=== PATIENT | female | born 1970 | race African-American/Black ===

== ENCOUNTER 2019-06-16 20:00 | Emergency (ER) | payer BC, SELFPAY ==
--- NOTE | ~2019-06-16 | XR_ITS ---
EXAMINATION: XR chest 2V 06/16/2019 20:40 INDICATION: Chest pain and palpitations PROCEDURE: 2 view chest COMPARISON: No prior studies for comparison. FINDINGS: The lungs are clear. The cardiomediastinal silhouette is within normal limits. There are no pleural effusions. There is no pneumothorax suspected. IMPRESSION: 1: NO ACUTE CARDIOPULMONARY DISEASE. Reviewed, dictated and finalized at location A. WORKER
[2019-06-16 20:05] VITALS: BP 141/85; PULSE 79; RESP 23; TEMP 36.7; O2SAT 97
--- NOTE | 2019-06-16 20:11 | ECG_ITS ---
Measurements Intervals [place] Rate: 75 P: 51 WI: 225 QRS: 64 QRSD: 76 T: 46 QT: 360 QTc: 404 Interpretive Statements SINUS RHYTHM WITH FIRST DEGREE AV BLOCK BASELINE WANDER- I, II, AVR, AVF, V2-V3 ABNORMAL ECG Electronically Signed On 06-17-2019 10:33:14 SENIOR QUALITY ASSURANCE ENGINEER by Shane Mart D.O.
--- NOTE | 2019-06-16 20:11 | ED.ARRPALP ---
HPI - Arrhythmia/Palpitations General Chief Complaint: Arrhythmia/Palpitations Stated Complaint: Not Feeling Well/Palpitations Time Seen by Provider: 06/16/19 20:08 Source: patient and RN notes reviewed Mode of arrival: ambulatory Limitations: no limitations History of Present Illness HPI narrative: Pt is a 48 y/o female who presents to the ED with c/o heart palpitations which began 2 days ago. She states she feels like her heart is racing. She states the palpitations last for approximately 5 minutes before alleviating. Pt reports she called her physician and got an appointment in 5 days, however, she felt like her symptoms worsened today which prompted her to come into the ED to be evaluated. She states she was driving home from work when her palpitations began again. She noticed her heart rate was increasing as she checked her Fit Bit. This episode of palpitations lasted longer than the episodes of 5 minutes she has had the past 2 days. She reports trying to take deep breaths without alleviation of her symptoms. Pt reports lightheadedness, but denies SOB or nausea. MD complaint: rapid heart beat, heart racing and palpitations Onset (ago): day(s) (2 days) Duration: intermittent Context: occurred during rest (most recent episode occurred when she was driving) Associated symptoms: other (lightheadedness) Related Data Allergies Allergy/AdvReac Type Severity Reaction Status Date / Time No Known Allergies Allergy Verified 06/16/19 20:09 Review of Systems Review of Systems: All systems reviewed & are unremarkable except as noted in HPI and below Cardiovascular: Cardiovascular: Reports rapid heart rate and Reports other (heart palpitations) Respiratory: Respiratory: Denies dyspnea Gastrointestinal: Gastrointestinal: Denies nausea Neurologic: Reports other (lightheadedness) [facility] Past Medical History Medical History (Updated 06/16/19 @ 23:32 by Paul Ford DO) No pertinent past medical history Surgical History Surgical History (Updated 06/16/19 @ 20:17 by Paola Chavez) No pertinent past surgical history Social History Social History (Updated 06/16/19 @ 20:17 by Paola Chavez) Smoking status: Smoker, status unknown Exam Narrative: Exam Narrative: APPEARANCE: No acute distress, nontoxic, resting in bed EYES: EOMI HEENT: Normocephalic, atraumatic, OMM RESPIRATORY: No respiratory distress Clear to auscultation bilaterally with no rhonchi wheezing or rales. CARDIOVASCULAR: Regular rate and rhythm without murmurs rubs or gallops. ABDOMINAL: Soft, nontender, nondistended, no rebound or guarding MUSCULOSKELETAl: Moves all extremities. No clubbing, cyanosis or edema. NEURO: Awake and alert. Following commands, speech normal, no focal deficits SKIN:: Warm, dry. No rashes lesions or abrasions PSYCHIATRIC: Normal affect/mood, Course Course Emergency Course: Patient meets PERC rule criteria and no further testing needs to be performed for pulmonary embolism. Patient remained on skid road worker throughout stay in ED no arrhythmias while in ED Discussed with patient results of workup and diagnosis. Discussed need for follow-up with primary care, proper use of medication, and reasons to return to the emergency department. Patient understands and agrees to current treatment plan discussed with patient Holter monitor as outpatient Vital Signs Vital signs: Vital Signs Temperature 98.1 F 06/16/19 20:05 Pulse Rate 79 06/16/19 20:05 Respiratory Rate 23 H 06/16/19 20:05 Blood Pressure 141/85 H 06/16/19 20:05 Pulse Oximetry 97 06/16/19 20:05 Temperature 98.1 F 06/16/19 20:05 Pulse Rate 78 06/16/19 23:22 Respiratory Rate 14 06/16/19 23:22 Blood Pressure 114/84 06/16/19 23:22 Pulse Oximetry 98 06/16/19 23:22 MDM - Arrhythmia/Palpitations Lab Data Result diagrams: 06/16/19 20:23 06/16/19 20:23 Labs: Lab Results 06/16/19 06/16/19 06/16/19 Range/U
[2019-06-16 20:29] LABS: Basophils Percent Auto 0.5 % (0.2-1.2); Eosinophils Absolute Auto 0.1 K/mm3 (0-0.3); Eosinophils Percent Auto 1.4 % (0-4.4); Hematocrit 36.8 % (37.0-47.0); Hemoglobin 11.9 g/dL (12.0-15.0); Immature Granulocyte Absolute 0.01 K/mm3 (0.00-0.031); Immature Granulocyte Percent A 0.2 % (0-0.5); Lymphocytes Absolute Auto 3.13 K/mm3 (0.9-3.2); Lymphocytes Percent Auto 48.1 % (18.3-44.2); Mean Corpuscular HGB Conc 32.3 g/dl (32-36); Mean Corpuscular Hemoglobin 24.9 pg (26-34); Mean Corpuscular Volume 77.1 fl (80-100); Mean Platelet Volume 10.7 fl (7.4-10.4); Monocytes Absolute Auto 0.7 K/mm3 (0.1-0.6); Monocytes Percent Auto 10.6 % (2.6-8.5); Neutrophils Absolute Auto 2.6 K/mm3 (1.3-6.7); Neutrophils Percent Auto 39.2 % (45.5-73.1); Platelet Count Result 256 k/mm3 (150-375); Red Blood Count 4.77 M/mm3 (4.2-5.4); Red Cell Distribution Width 13.3 % (11.5-14.5); White Blood Count 6.5 K/mm3 (4.5-10.0)
[2019-06-16 20:41] LABS: Alanine Aminotransferase 24 U/L (4-35); Albumin Level 4.5 g/dL (3.5-5.1); Alkaline Phosphatase 81 U/L (38-126); Aspartate Amino Transferase 44 U/L (14-36); Bilirubin,Total 0.2 mg/dL (0.2-1.3); Blood Urea Nitrogen 14 mg/dL (7-17); Carbon Dioxide 31 mmol/L (22-30); Chloride 101 mmol/L (98-107); Estimated CRCL calculation 90 ml/min; Estimated Glomerular Filt Rate > 60; Glucose 91 mg/dL (65-105); Potassium 3.3 mmol/L (3.4-5.0); Sodium 140 mmol/L (137-145)
[2019-06-16 20:51] LABS: Add Urine Microscopic? YES; Appearance Urine Clear (Clear); Bilirubin Urine Negative (Negative); Blood Urine Negative (Negative); Color Urine Yellow (Yellow); Glucose Urine UA Negative (Negative); Ketones Urine Negative (Negative); Leukocyte Esterase Ur Negative LEU/UL (Negative); Mucus Urine Rare /lpf; Nitrate Urine Negative (Negative); Protein Urine Negative (Negative); RBC Urine 0-2 /hpf (0-2); Specific Grav Ur 1.023 (1.001-1.035); Squamous Epithelial Cell Urine Rare /hpf (Few); Urobilinogen Urine Negative mg/dL (<2.0); WBC Urine 0-3 /hpf
[2019-06-16 20:52] LABS: Troponin I < 0.012 ng/mL (0.000-0.034)
[2019-06-16] MEDS: POTASSIUM CHLORIDE 20 MEQ TABLET 40 MEQ PO (21:06)
[2019-06-16 22:01] VITALS: BP 111/80; PULSE 73; RESP 19; O2SAT 96
[2019-06-16 23:22] VITALS: BP 114/84; PULSE 78; RESP 14; O2SAT 98
[2019-06-16 23:24] LABS: Troponin I < 0.012 ng/mL (0.000-0.034)
== END 2019-06-16 23:43 | disposition home or self-care (01) ==
PROVIDERS: Emergency Provider Emergency Medicine
DX: R00.2 Palpitations (principal)
CPT/HCPCS: 36415; 71046; 80053; 81001; 81025; 84484; 85025; 93005; 99284; A9270

== ENCOUNTER 2020-07-27 09:56 | Emergency (ER) | payer BC, SELFPAY ==
--- NOTE | ~2020-07-27 | XR_ITS ---
EXAMINATION: XR chest 2V EXAM DATE: 07/27/2020 11:06 INDICATION: Shortness of breath. TECHNIQUE: Frontal and lateral projections of the chest obtained and reviewed. There are no prior fritz dies for comparison. FINDINGS: The lungs are clear. There are no pleural effusions. The cardiomediastinal silhouette is within normal limits. There is no pneumothorax suspected. The bones and soft tissues are unremarkab le. IMPRESSION: Unremarkable chest x-ray exam. Reviewed, dictated and finalized at location B. TER MAKER
[2020-07-27 10:47] VITALS: PULSE 60; RESP 16; O2SAT 100
--- NOTE | 2020-07-27 10:59 | ED.GENADULT ---
HPI - General Adult General Chief complaint: Upper Respiratory Infection Stated complaint: Asthma Problems Time Seen by Provider: 07/27/20 10:26 Source: patient and RN notes reviewed Mode of arrival: ambulatory Limitations: no limitations History of Present Illness HPI narrative: Patient presents today complaining of headache, fatigue, dizziness, chest burning, shortness of breath x3 days. States she had palpitations on the first day of symptoms, but none since then. States she has a very slight cough that started yesterday, but this is not constant. Reports the dizziness is intermittent. Denies chest pain, fever, sweats or chills, sore throat, congestion or rhinorrhea, or wheezing. History of hypertension and asthma. Denies any ogep-lac-gzcjgla medication use prior to arrival. States she has increased her inhaler use since yesterday without relief. Denies any sick contacts. She is scheduled for her first COVID-19 vaccination in 3 days. Reports that she has noted over the past ~1 month that the HR measurement on her FitBit has gotten down to 40 at times. MD complaint: Shortness of breath, dizziness, headache Related Data Home Medications Medication Instructions Recorded Confirmed Iron 07/27/20 albuterol sulfate [Ventolin HFA] INHALATION 07/27/20 budesonide-formoterol [Symbicort] INHALATION 07/27/20 bupropion HCl mg PO 07/27/20 cyanocobalamin (vitamin B-12) 07/27/20 estradiol 07/27/20 fluconazole 07/27/20 metronidazole 07/27/20 telmisartan-hydrochlorothiazid tablet 07/27/20 Allergies Allergy/AdvReac Type Severity Reaction Status Date / Time No Known Allergies Allergy Verified 06/16/19 20:09 Review of Systems Review of Systems: Narrative: CONSTITUTIONAL: Denies body aches, fever, chills, or sweats. + Fatigue EYES: Denies visual changes, redness, or discharge. ENT: Denies rhinorrhea, congestion, sore throat, or otalgia. CARDIOVASCULAR: Denies chest pain, palpitations, or edema. RESPIRATORY: + Slight cough, shortness of breath. Denies wheezing GASTROINTESTINAL: Denies abdominal pain, nausea, vomiting, or diarrhea. GENITOURINARY: Denies dysuria or hematuria. SKIN: Denies rash, itching, or wounds. MUSCULOSKELETAL: Denies back pain, joint pain, or myalgia. NEUROLOGIC: Denies numbness, tingling, or weakness.+ Headache, dizziness PSYCH: Denies depression or anxiety. [facility] Past Medical History Medical History (Updated 07/27/20 @ 11:34 by Pari Whitaker, [facility], ) Asthma Hypertension No pertinent past medical history Surgical History Surgical History (Updated 06/16/19 @ 20:17 by Paola Chavez) No pertinent past surgical history Social History Social History (Updated 06/16/19 @ 20:17 by Paola Chavez) Smoking status: Smoker, status unknown Comments At time of signature, I have reviewed and agree with nursing past medical, surgical, social and family history unless otherwise noted. Please see nursing chart for further information. There is no relevant family history pertinent to the presenting complaint Exam Narrative: Exam Narrative: GENERAL: Well-appearing, well-nourished, and in no acute distress. HEAD: Normocephalic, atraumatic. EYES: EOMI. No redness or drainage. Conjunctivae normal. ENT: Mucous membranes pink and moist. Nares clear. No rhinorrhea. TMs normal bilaterally. Throat normal. Uvula midline. NECK: Normal AROM. Supple. No lymphadenopathy. CHEST: No respiratory distress. Clear to auscultation. Left chest was mildly tender to palpation. HEART: Regular rate and rhythm. No murmur appreciated. Normal peripheral pulses. EXTREMITIES: Normal range of motion. No edema. SKIN: Warm, dry, no rash. Capillary refill normal. Normal skin turgor. NEURO: No focal deficits. Alert and oriented x3. Gait steady. PSYCH: Normal affect. No signs of depression or anxiety. Course Course Emergency Course: Based on patient's symptoms, exam, and EKG findings, I feel it indicated to
[2020-07-27 11:01] VITALS: BP 110/78; TEMP 36.8
--- NOTE | 2020-07-27 11:02 | PC.NURSE ---
bp checked manually prior to xray. initial done by automatic cuff and was rechecked.
--- NOTE | 2020-07-27 11:35 | ECG_ITS ---
Measurements Intervals [place] Rate: 58 P: 37 HI: 266 QRS: 66 QRSD: 75 T: 59 QT: 409 QTc: 403 Interpretive Statements SINUS BRADYCARDIA WITH FIRST DEGREE AV BLOCK VENTRICULAR PREMATURE COMPLEX ABNORMAL ECG Electronically Signed On 07-27-2020 12:04:43 [employer] TEACHER by Shane Mart D.O.
== END 2020-07-27 11:50 | disposition left against medical advice (07) ==
PROVIDERS: Emergency Provider Nurse Practitioner
DX: R06.02 Shortness of breath (principal); R42 Dizziness and giddiness; I44.0 Atrioventricular block, first degree; J45.909 Unspecified asthma, uncomplicated; I10 Essential (primary) hypertension
CPT/HCPCS: 71046; 93005; 99213; G0463

== ENCOUNTER 2020-07-27 13:03 | Emergency (ER) | payer BC, SELFPAY ==
[2020-07-27] VITALS (18 sets, daily range): BP systolic 99–121; BP diastolic 60–94; PULSE 57–84; RESP 14–19; TEMP 36.4; O2SAT 97–100
--- NOTE | ~2020-07-27 | XR_ITS ---
EXAMINATION: XR chest 1V portable INDICATION: Shortness of breath TECHNIQUE: Portable AP chest at 1356 hours COMPARISON: 1100 hours FINDINGS: The lungs are free of acute opacities. There is no pleural effusion or pneumothorax. The ca rdiomediastinal silhouette is normal. The visualized osseous structures are unremarkable. IMPRESSION: 1. No acute cardiopulmonary abnormality. Reviewed, dictated and finalized at location A. ECTOR TOYS
--- NOTE | 2020-07-27 13:08 | ECG_ITS ---
Measurements Intervals [place] Rate: 70 P: 50 IA: 215 QRS: 53 QRSD: 84 T: 44 QT: 383 QTc: 415 Interpretive Statements SINUS RHYTHM WITH FIRST DEGREE AV BLOCK BASELINE WANDER- II, III, AVF ABNORMAL ECG Electronically Signed On 07-27-2020 13:15:24 RENDERING EQUIPMENT TENDER by Shane Mart D.O.
[2020-07-27 13:28] LABS: Basophils Percent Auto 0.2 % (0.2-1.2); Eosinophils Percent Auto 0.7 % (0-4.4); Hematocrit 37.1 % (37.0-47.0); Hemoglobin 12.4 g/dL (12.0-15.0); Immature Granulocyte Absolute 0.02 K/mm3 (0.00-0.031); Immature Granulocyte Percent A 0.4 % (0-0.5); Lymphocytes Absolute Auto 2.34 K/mm3 (0.9-3.2); Lymphocytes Percent Auto 41.7 % (18.3-44.2); Mean Corpuscular HGB Conc 33.4 g/dl (32-36); Mean Corpuscular Hemoglobin 26.1 pg (26-34); Mean Corpuscular Volume 78.1 fl (80-100); Mean Platelet Volume 10.3 fl (7.4-10.4); Monocytes Absolute Auto 0.6 K/mm3 (0.1-0.6); Monocytes Percent Auto 10.2 % (2.6-8.5); Neutrophils Absolute Auto 2.6 K/mm3 (1.3-6.7); Neutrophils Percent Auto 46.8 % (45.5-73.1); Platelet Count Result 290 k/mm3 (150-375); Red Blood Count 4.75 M/mm3 (4.2-5.4); Red Cell Distribution Width 13.4 % (11.5-14.5); White Blood Count 5.6 K/mm3 (4.5-10.0)
[2020-07-27 13:40] LABS: Anion Gap 6 mmol/L (8-16); Blood Urea Nitrogen 11 mg/dL (7-17); Calcium 9.1 mg/dL (8.4-10.2); Carbon Dioxide 32 mmol/L (22-30); Chloride 103 mmol/L (98-107); Estimated CRCL calculation 79 ml/min; Estimated Glomerular Filt Rate > 60; Glucose 87 mg/dL (65-105); Potassium 3.5 mmol/L (3.4-5.0); Sodium 141 mmol/L (137-145)
--- NOTE | 2020-07-27 14:18 | ED.SOB ---
HPI - SOB/Dyspnea General Chief Complaint: Shortness of Breath/Dyspnea Stated Complaint: sob, dizzy Time Seen by Provider: 07/27/20 13:42 Source: patient Mode of arrival: ambulatory Limitations: no limitations History of Present Illness HPI Narrative: This patient is a 50 year old female with history of asthma who presents for evaluation of shortness of breath. She states she developed sob on Friday and it has remained. She states she was at rest when she developed sob. IT does not seem worse with exertion. She also reports having lightheaded/dizziness at the time. She reports her dizziness has improved. She reports midsternal nonradiating burning chest pain. This has been constant for the past 4 days. She denies any exacerbating or alleviating factors for her chest pain. She denies nausea, vomiting, fever, abdominal pain, sore throat or cough. MD elicited complaint: shortness of breath Related Data Home Medications Medication Instructions Recorded Confirmed Iron 07/27/20 albuterol sulfate [Ventolin HFA] INHALATION 07/27/20 budesonide-formoterol [Symbicort] INHALATION 07/27/20 bupropion HCl mg PO 07/27/20 cyanocobalamin (vitamin B-12) 07/27/20 estradiol 07/27/20 telmisartan-hydrochlorothiazid tablet 07/27/20 Allergies Allergy/AdvReac Type Severity Reaction Status Date / Time No Known Allergies Allergy Verified 07/27/20 13:44 Review of Systems Review of Systems: All systems reviewed & are unremarkable except as noted in HPI and below PMFSH Past Medical History Medical History Asthma Hypertension No pertinent past medical history Surgical History Surgical History (Updated 06/16/19 @ 20:17 by Paola Chavez) No pertinent past surgical history Social History Social History (Updated 06/16/19 @ 20:17 by Paola Chavez) Smoking status: Smoker, status unknown Gender identity (if verbalized by the patient): Female Exam Narrative: Exam Narrative: GENERAL: Well-appearing, well-nourished, and in no acute distress. HEAD: Normocephalic, atraumatic EYES: PERRLA and EOMI, conjunctiva clear without discharge THROAT:Mucous membranes moist, Oropharynx normal without erythema, exudate, peritonsillar swelling or fluctuance NECK: Supple, without lymphadenopathy or mass RESPIRATORY: No respiratory distress, Airway patent, Respirations non-labored, Clear to auscultation without rales, rhonchi or wheeze HEART: Regular rate and rhythm. No murmur heard. Normal peripheral pulses. ABDOMEN: Soft, nontender, nondistended, normal active bowel sounds. No masses. No rebound or guarding, No organomegaly. EXTREMITIES: No edema, normal strength with full range of motion. SKIN: Warm, dry, normal color without rash NEURO: Alert and oriented x3. CN 2-12 grossly intact. No focal deficits. PSYCH: Normal mood and affect. Course Reevaluation(s) Reevaluation #1: Nursing staff states patient had no change with nitro glycerin. She states she is not have chest pain though. Her complaint now is that she is having d Date: 07/27/20 Time: 16:00 Reevaluation #2: Her headache has resolved. Patient was able to ambulate around entire nurses station with dizziness or any complaints. SHe has steady gait and normal neuro exam. I Discussed she will be discharged for outpatient evaluation. Date: 07/27/20 Time: 17:44 Vital Signs Vital signs: Vital Signs Temperature 97.6 F 07/27/20 13:15 Pulse Rate 66 07/27/20 13:15 Respiratory Rate 14 07/27/20 13:15 Blood Pressure 121/71 07/27/20 13:15 Pulse Oximetry 100 07/27/20 13:15 Temperature 97.6 F 07/27/20 13:15 Pulse Rate 67 07/27/20 18:00 Respiratory Rate 16 07/27/20 18:00 Blood Pressure 114/67 07/27/20 18:00 Pulse Oximetry 99 07/27/20 18:00 MDM - SOB/Dyspnea Lab Data Result diagrams: 07/27/20 13:21 07/27/20 13:21 Labs: Lab Results
--- NOTE | 2020-07-27 14:23 | PC.NURSE ---
called to add on labs
[2020-07-27 14:38] LABS: INR 0.9; Prothrombin Time 12.8 Seconds (11.1-14.7)
[2020-07-27 14:39] LABS: Partial Thromboplastin Time 27.7 SECONDS (22.3-36.8)
[2020-07-27 14:43] LABS: D Dimer 0.27 ug/mL (<0.48)
[2020-07-27 14:44] LABS: Troponin I < 0.012 ng/mL (0.000-0.034)
[2020-07-27] MEDS: SODIUM CHLORIDE 0.9% IV 500 ML 999 ML IV CONT (15:05)
[2020-07-27] MEDS: NITROGLYCERIN SL 0.4 MG TABLET SUBLINGUAL (15:06)
[2020-07-27] MEDS: SODIUM CHLORIDE 0.9% IV 1,000 ML 999 ML IV CONT (15:20)
[2020-07-27] MEDS: MECLIZINE HCL 25 MG TABLET PO (15:20)
[2020-07-27 17:20] LABS: Troponin I < 0.012 ng/mL (0.000-0.034)
== END 2020-07-27 18:00 | disposition home or self-care (01) ==
PROVIDERS: Emergency Medicine; Emergency Provider General Practice
DX: R07.89 Other chest pain (principal); R42 Dizziness and giddiness; J45.909 Unspecified asthma, uncomplicated; I10 Essential (primary) hypertension; I44.0 Atrioventricular block, first degree
CPT/HCPCS: 36415; 71045; 71046; 80048; 84484; 85025; 85380; 85610; 85730; 93005; 96361; 96365; 99284; A9270; J0131; J7030; J7040

== ENCOUNTER 2021-07-28 14:10 | Emergency (ER) | payer BC, SELFPAY ==
[2021-07-28 14:20] VITALS: BP 132/90; PULSE 76; RESP 16; TEMP 36.6; O2SAT 99
--- NOTE | 2021-07-28 15:26 | ECG_ITS ---
Measurements Intervals [place] Rate: 63 P: 53 VT: 236 QRS: 52 QRSD: 82 T: 63 QT: 397 QTc: 409 Interpretive Statements SINUS RHYTHM WITH FIRST DEGREE AV BLOCK LOW QRS VOLTAGE IN PRECORDIAL LEADS [QRS DEFLECTION < 1.0 mV IN CHEST LEADS] COMPARED TO ECG 07/27/2020 13:14:25 NO SIGNIFICANT CHANGES Electronically Signed On 07-29-2021 16:36:30 CDT by Ingrid Hernandez M.D.
--- NOTE | 2021-07-28 15:28 | ED.DIZZY ---
HPI - Dizziness General Chief Complaint: Dizziness Stated Complaint: HBP/Dizziness Time Seen by Provider: 07/28/21 15:15 Source: patient and RN notes reviewed Mode of arrival: ambulatory Limitations: no limitations History of Present Illness HPI Narrative: Patient presents today complaining of lightheadedness and dizziness with nausea and feeling off balance upon standing at noon today which has persisted. She took her blood pressure at that time at home and it was 143/90. Patient states that in order to try to get her balance back she took a walk down to the [employer] store, but states that when she got there she had to hold onto her cart for balance. Denies chest pain, shortness of breath, abdominal pain. She has not tried any [id number] interventions prior to arrival. 1 year ago she presented to urgent care with similar symptoms, left AMA, and subsequently went to the ER where she had a work-up and was discharged home with a prescription for meclizine. Patient states she does not remember taking the meclizine or whether or not it worked. MD elicited complaint: dizziness and lightheadedness Related Data Home Medications Medication Instructions Recorded Confirmed Iron 07/27/20 albuterol sulfate [Ventolin HFA] INHALATION 07/27/20 budesonide-formoterol [Symbicort] INHALATION 07/27/20 bupropion HCl mg PO 07/27/20 cyanocobalamin (vitamin B-12) 07/27/20 telmisartan-hydrochlorothiazid tablet 07/27/20 Probiotic 07/28/21 estradiol [Jackie] 07/28/21 Allergies Allergy/AdvReac Type Severity Reaction Status Date / Time No Known Allergies Allergy Verified 07/27/20 13:44 Review of Systems Review of Systems: CONSTITUTIONAL: Denies body aches, fever, chills, or sweats. EYES: Denies visual changes, redness, or discharge. ENT: Denies rhinorrhea, congestion, sore throat, or otalgia. CARDIOVASCULAR: Denies chest pain, palpitations, or edema. RESPIRATORY: Denies cough or dyspnea. GASTROINTESTINAL: Denies abdominal pain, vomiting, or diarrhea.+ Nausea SKIN: Denies rash, itching, or wounds. MUSCULOSKELETAL: Denies back pain, joint pain, or myalgia. NEUROLOGIC: Denies headache, numbness, tingling, or weakness.+ Dizziness, lightheadedness PSYCH: Denies depression or anxiety. [facility] Past Medical History Medical History Asthma Hypertension No pertinent past medical history Surgical History Surgical History No pertinent past surgical history Social History Social History Smoking status: Smoker, status unknown Gender identity (if verbalized by the patient): Female Comments At time of signature, I have reviewed and agree with nursing past medical, surgical, social and family history unless otherwise noted. Please see nursing chart for further information. There is no relevant family history pertinent to the presenting complaint Exam Narrative: GENERAL: Well-appearing, well-nourished, and in no acute distress. HEAD: Normocephalic, atraumatic. EYES: EOMI. PERRL. No redness or drainage. Conjunctivae normal. ENT: Mucous membranes pink and moist. Nares clear. No rhinorrhea. TMs normal bilaterally. Throat normal. Uvula midline. NECK: Normal AROM. Supple. No lymphadenopathy. CHEST: No respiratory distress. Clear to auscultation. HEART: Regular rate and rhythm. No murmur appreciated. Normal peripheral pulses. EXTREMITIES: Normal range of motion. No edema. SKIN: Warm, dry, no rash. Capillary refill normal. Normal skin turgor. NEURO: No focal deficits. Alert and oriented x3. Gait steady. Patient walked at a brisk pace to and from the restroom without difficulty. PSYCH: Normal affect. No signs of depression or anxiety. Course Course Emergency Course: Patient declines transfer to the ER at this time for further evaluation of her symp
[2021-07-28 15:45] VITALS: BP 122/82; PULSE 67
--- NOTE | 2021-07-28 15:45 | PC.NURSE ---
1525 and 1538 [address] ambulated down hallway to br with brisk steady gait.
[2021-07-28 15:49] VITALS: BP 106/80; PULSE 68
[2021-07-28 15:56] VITALS: BP 114/81; PULSE 68
== END 2021-07-28 15:55 | disposition home or self-care (01) ==
PROVIDERS: Emergency Provider Nurse Practitioner
DX: R42 Dizziness and giddiness (principal); J45.909 Unspecified asthma, uncomplicated; I10 Essential (primary) hypertension
CPT/HCPCS: 93005; 99213; G0463